=== PATIENT | female | born 1970 | race African-American/Black ===

== ENCOUNTER 2023-04-15 20:19 | Emergency (ER) | payer BC, OTHER ==
[2023-04-15] MEDS ORDERED: IBUPROFEN 400 MG TABLET (FP) PO PRN (20:25)
[2023-04-15] MEDS ORDERED: LIDOCAINE 5% TOPICAL PATCH TP ONE (20:25)
[2023-04-15 20:28] VITALS: BP 138/76; PULSE 92; RESP 18; TEMP 98; BMI 29.9
[2023-04-15] MEDS ORDERED: LIDOCAINE 5% TOPICAL PATCH ONE (20:31)
[2023-04-15] MEDS ORDERED: IBUPROFEN 400 MG TABLET (FP) PO ONE (20:31)
[2023-04-15] MEDS ORDERED: LIDOCAINE PATCH REMOVAL MC SCH (22:00)
== END 2023-04-15 21:22 | disposition home or self-care (01) ==
LOC: FER 20:19
DX: M62.838 Other muscle spasm (principal); M54.50 Low back pain, unspecified
CPT/HCPCS: 99283-25